=== PATIENT | male | born 1995 | race Caucasian/White ===

== ENCOUNTER 2020-09-19 10:22 | Emergency (ER) | payer MEDICAID, OTHER ==
[~2020-09-19] VITALS: Ht 180.3 cm; Wt 95.3 kg
[~2020-09-19 10:22] MED LIST: BENZ0.5T19; BUPR-40; CARB100C3
[2020-09-19 10:36] VITALS: BP 129/82
== END 2020-09-19 13:03 | disposition home or self-care (01) ==
LOC: ER 10:22
DX: Z48.00 Encounter for change or removal of nonsurgical wound dressing (principal); Z79.899 Other long term (current) drug therapy
CPT/HCPCS: 99281; J7030